=== PATIENT | female | born 1970 | race Two or more races ===

== ENCOUNTER 2025-01-18 13:53 | Emergency (ER) | payer OTHER ==
[~2025-01-18] VITALS: Ht 162.6 cm; Wt 126.6 kg
[2025-01-18] MEDS ORDERED: PEPCID AC20 MG PO (15:21)
[2025-01-18] MEDS ORDERED: METFORMIN HCL500 M3 PO (15:21)
[2025-01-18] MEDS ORDERED: PROTONIX IV40 MG IV (15:21)
[2025-01-18] MEDS ORDERED: KETOROLAC TROMETHAMINE 30 MG VIAL IM STA (17:49)
[2025-01-18] MEDS ORDERED: ORPHENADRINE CITRATE 30 MG/ML AMPUL IM STA (17:50)
[2025-01-18] MEDS ORDERED: FAMOTIDINE/PF 20 MG/2 ML VIAL IV STA (17:50)
[2025-01-18] MEDS ORDERED: ORPHENADRINE CITRATE 30 MG/ML AMPUL ONE (18:51)
[2025-01-18] MEDS ORDERED: FAMOTIDINE/PF 20 MG/2 ML VIAL ONE (18:51)
[2025-01-18] MEDS ORDERED: KETOROLAC TROMETHAMINE 30 MG VIAL ONE (18:51)
[2025-01-18 19:33] LABS: BASO % 0.3 % (0.1-1.2); EOS # 0.17 (0.04-0.54); EOS % 1.9 % (0.7-7.0); LYMPH # 2.27 (1.18-3.74); LYMPH % 25.9 % (19.3-53.1); MEAN PLATELET VOLUME 9.00 fl (9.4-12.4); MONO # 0.58 (0.24-0.82); MONO % 6.6 % (4.7-12.5); NEUT # 5.64 (1.56-6.13); NEUT % 64.3 % (34.0-71.1); RED CELL DISTRIBUTION WIDTH 16.4 % (11.6-14.4)
[2025-01-18 19:57] LABS: ALT/SGPT 21.0 U/L (12-78); AST/SGOT 13.0 U/L (15-37); BILIRUBIN TOTAL 0.15 mg/dL (0.3-1.2); BUN CREA RATIO 14.0 (7.0-25.0); CREATININE SERUM 0.74 mg/dL (0.55-1.02); GFR 82.09; GLOBULINA 3.5 G/DL (2.4-3.5); GLUCOSE FASTING 120.0 mg/dL (65-100); OSMOLALITY SERUM 280.0 MOSM/KG (275-295)
[2025-01-18] MEDS ORDERED: ZANAFLEX2 M1 PO (20:45)
[2025-01-18] MEDS ORDERED: DICLOFENAC POTA50 MG PO (20:45)
== END 2025-01-18 21:23 | disposition home or self-care (01) ==
LOC: ER 13:53
PROVIDERS: General Practice
DX: R10.13 Epigastric pain (principal); M54.2 Cervicalgia; M62.838 Other muscle spasm; E11.9 Type 2 diabetes mellitus without complications; Z79.84 Long term (current) use of oral hypoglycemic drugs